=== PATIENT | male | born 1955 | race Caucasian/White ===

== ENCOUNTER 2020-10-16 01:48 | Outpatient (CLI) | payer MEDICARE, SELFPAY ==
[2020-10-16 19:16] LABS: SARS-CoV-2 RNA PCR Negative
== END 2020-10-16 01:49 | disposition home or self-care (01) ==
LOC: ANHCOVIDDT 01:50
PROVIDERS: PCP Family Medicine; Visit Provider Internal Medicine Gastroenterology
DX: Z01.818 Encounter for other preprocedural examination (principal); Z20.828 Contact with and (suspected) exposure to other viral communicable diseases
CPT/HCPCS: 87635; C9803; U0003

== ENCOUNTER 2020-10-18 01:30 | Day surgery (SDC) | payer MEDICARE, SELFPAY ==
[2020-10-08 13:54] VITALS: BMI 25.1
[2020-10-18 06:24] VITALS: BP 122/72; PULSE 60; RESP 18; TEMP 36.3; O2SAT 100
[2020-10-18] MEDS: LACTATED RINGERS 1,000 ML 150 ML IV CONT (06:32)
--- NOTE | 2020-10-18 07:24 | WPDANESEPPF ---
Anes - Initial Pre Proc Eval Procedure: Operation Date: 10/18/20 07:30 Proposed Procedures p Screening Colonoscopy - Irvin Alvarez DO Date/Time: 10/18/20 07:24 Surgeon: Irvin Alvarez DO Pre Op Diagnosis: Neoplasm Screening Patient Data Age: 65 Gender: M Height: 5 ft 8 in Weight: 75.2 kg Last Vital Signs Temp 97.4 F L 10/18/20 06:24 Pulse 60 10/18/20 06:24 Resp 18 10/18/20 06:24 BP 122/72 10/18/20 06:24 Pulse Ox 100 10/18/20 06:24 Allergies Allergy/AdvReac Type Severity Reaction Status Date / Time No Known Allergies Allergy Verified 10/18/20 06:21 Home Medications Medication Instructions Recorded Confirmed Type chlorthalidone 25 mg tablet 25 mg PO DAILY 08/24/20 10/08/20 History rosuvastatin 40 mg tablet 40 mg PO DAILY 08/24/20 10/08/20 History carvedilol 12.5 mg PO BID 10/18/20 10/18/20 History Patient hx anesthesia problems: none Family hx anesthesia problems: none PMFSH Past Medical History Medical History (Updated 09/26/20 @ 20:52 by Olga Lidia Minaya NP) Coronary arteriosclerosis in [place] artery Elevated glucose Essential (primary) hypertension Mixed hyperlipidemia Screen for colon cancer Screening for prostate cancer Family History Family History Father Hypertension Other Family history of coronary artery disease Social History Social History Smoking status: Never smoker Tobacco type: cigarettes Alcohol intake: current Drinks per week: 4 Substance use: unknown Substance use type: unknown Spiritual care concerns: No Anes - Eval Final PreProcedure Day of Procedure 10/18/20 07:24 Patient weight: normal Heart: regular rate and rhythm Lungs: clear to auscultation Airway: Mallampati scale Last oral intake: >/= 8 hours ASA classification: III Emergent: no Anesthetic plan: proceed Anesthesia type and monitoring: general GIVS and standard monitoring Informed Consent: The patient's anesthetic plan and its attendant risks and benefits were discussed with the patient/family/POA. Questions were solicited and answers provided to the satisfaction of the patient/family/POA.
--- NOTE | 2020-10-18 08:01 | P.HP_ITS ---
H&P: HPI History of Present Illness Date/Time: 10/18/20 08:01 Chief complaint: Neoplasm Screening Narrative: Reason for visit is colonoscopy. This very pleasant gentleman seen at the request of the primary physician. Impression: Screening colonoscopy. CAD status post stent placement x3. Hyperlipidemia. Hypertension. Recommendation: Colonoscopy. History: This very pleasant gentleman is here for screening colonoscopy. GI review systems essentially unremarkable. Previous colonoscopy was about 10 years ago. He had a questionable history of polyps. However, I see no evidence of polyps in the old records. Physical examination: General: very pleasant patient in no acute distress. HEENT: Head was normocephalic sclerae is clear mouth without masses neck was supple. Heart: Rate rhythm regular without S3 or S4. Lungs: CTA. Abdomen: Soft with no guarding or rigidity. Bowel sounds were active. Neurologic: Cranial nerves 2 through 12 intact. No focal defects. No clonus. Musculoskeletal system: Revealed no joint tenderness or swelling no muscle atrophy. Extremities: Reveal no significant edema. Skin: Warm and dry with normal turgor. Mental status: intact. Patient is alert and oriented. Review of Systems Review of Systems: All systems reviewed & are unremarkable except as noted in HPI and below PMFSH Past Medical History Medical History (Updated 09/26/20 @ 20:52 by Olga Lidia Minaya NP) Coronary arteriosclerosis in [place] artery Elevated glucose Essential (primary) hypertension Mixed hyperlipidemia Screen for colon cancer Screening for prostate cancer Surgical History Surgical History (Updated 10/18/20 @ 08:03 by Irvin Alvarez DO) H/O colonoscopy History of coronary angioplasty with insertion of stent Family History Family History Father Hypertension Other Family history of coronary artery disease Social History Social History Smoking status: Never smoker Tobacco type: cigarettes Alcohol intake: current Drinks per week: 4 Substance use: unknown Substance use type: unknown Spiritual care concerns: No Meds Home Medications and Allergies Home Medications Medication Instructions Recorded Confirmed Type chlorthalidone 25 mg tablet 25 mg PO DAILY 08/24/20 10/08/20 History rosuvastatin 40 mg tablet 40 mg PO DAILY 08/24/20 10/08/20 History carvedilol 12.5 mg PO BID 10/18/20 10/18/20 History Allergies Allergy/AdvReac Type Severity Reaction Status Date / Time No Known Allergies Allergy Verified 10/18/20 06:21 Vital Signs Vital Signs - 24 hr 10/18/20 06:24 Temperature 36.3 C L Pulse Rate 60 Respiratory Rate 18 Blood Pressure 122/72 Pulse Oximetry 100
[2020-10-18 08:33] VITALS: BP 85/42; PULSE 58; RESP 16; O2SAT 96
[2020-10-18 08:43] VITALS: BP 91/55; PULSE 55; RESP 19; O2SAT 100
[2020-10-18 08:53] VITALS: BP 102/70; PULSE 52; RESP 15; O2SAT 100
== END 2020-10-18 09:08 | disposition home or self-care (01) ==
PROVIDERS: PCP Family Medicine; Visit Provider Internal Medicine Gastroenterology
PROC: 0DJD8ZZ Inspection of Lower Intestinal Tract, Via Natural or Artificial Opening Endoscopic (ICD-10-PCS; CPT 45378; principal; 2020-10-18 07:30)
DX: Z12.11 Encounter for screening for malignant neoplasm of colon (principal); D12.3 Benign neoplasm of transverse colon; K63.5 Polyp of colon; K64.8 Other hemorrhoids; I25.10 Atherosclerotic heart disease of native coronary artery without angina pectoris; I10 Essential (primary) hypertension; E78.2 Mixed hyperlipidemia
CPT/HCPCS: 45380; 88305; C9803; J2704; J7120; U0003

== ENCOUNTER 2025-07-20 01:56 | Day surgery (SDC) | payer MEDICARE, SELFPAY ==
[2025-06-06 11:37] VITALS: BMI 25.6
--- OUTSIDE RECORDS SUMMARY | 2025-06-21 01:56 | XMS_ITS | Referral Summary ---
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 Overview (02/20/2017): MIXED HYPERLIPIDEMIA Family history of cardiovascular disease 014 Overview (02/20/2017): FAM HX-CARDIOVAS DIS NEC Social History Tobacco Use Types Packs/Day Years Used Date Smoking Tobacco: Never Assessed Sex and Gender Information Value Date Recorded Sex Assigned at Not on file 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
--- OUTSIDE RECORDS SUMMARY | 2025-06-21 01:57 | XMS_ITS | Clinical Summary ---
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 Gender Identity Not on file Sexual Orientation Not on file Plan of Treatment Health Maintenance Due Date Last Done Comments Colon Cancer Screening-Colonoscopy 1954 Depression Screening 1954 Fall Risk Assessment 1955 Hepatitis C Screening 1955 Abdominal Aortic Aneurysm (A AA) Screen 2019 Well Visit 65+ 2019 Covid-19 Vaccine (2023-2 5 season) 2025 07/29/2024, 08/22/2023, 08/15/2022, Additional history exists Influenza Vaccine (#1) 2025 , 08/22/2023, 07/25/2023, Additional history exists DTaP/Tdap/Td Vaccine (3 - Td or Tdap) 03/23/2034 03/23/2024, 12/01/2013 Hepatitis B Screening Completed 05/16/2015 , 05/17/2014, 12/01/2013 Zoster Vaccine Completed 09/02/2021, 02/14, 12/18/2014 Pneumococcal vaccine 65+ Completed 023, 03/01/2021, 08/08/2019, Additional history exists Insurance [facility] MEDICARE ADVANTAGE Care Teams Edge Cutter Relationship Specialty Start Date End Date Terence Barber MD PCP - General 10/14/10
--- OUTSIDE RECORDS SUMMARY | 2025-06-21 01:57 | XMS_ITS | Clinical Summary ---
Author Organization [facility] Address [address] [id number] Phone Care Team Providers Care Cloth Stretcher Name Role Phone Terence Barber MD Primary Care Provider [phone] Social History Tobacco Use Types Packs/Day Years Used Date Smoking Tobacco: Never Assessed Sex and Gender Information Value Date Recorded Sex Assigned at Not on file Legal Sex Male 3:35 AM CDT Gender Identity Not on file Sexual Orientation Not on file Plan of Treatment Health Maintenance Due Date Last Done Comments Hepatitis C Virus (HCV) Screening 1955 TdaP Immunization 1954 Cologuard 1999 Immunochemical Fecal Occult Blood 1999 Pneumococcal Immunization (5 0+ years) (1 of 1 - PCV) 2004 Zoster Immunization (1 of 2) 2004 Colonoscopy 01/16/2021 10/18/2020 Colorectal Cancer Screening 01/16/2021 SARS-COV-2 Immunization ( - season) 2024 Influenza Immunization (#1) 2025 Respiratory Syncytial Virus (RSV) Immunization (Adult) (1 - 1-dose 75+ series) 2029 Hepatitis B Immunization Aged Out No longer eligible based on patient's age to complete this topic Human Papillomavirus (HPV) Immunization Aged Out No longer eligible b ased on patient's age to complete this topic Meningococcal Immunization (ACWY) Aged Out No longer eligible based on patient's age to complete this topic Rotavirus Immunization Aged Out No lo nger eligible based on patient's age to complete this topic Procedures Procedure Name Priority Date/Time Associated Diagnosis Comments HM COLONOSCOPY Routine 10/18/2020 from Last 3 Months or Most Recently Relevant to Health Maintenance Results * COLONOSCOPY (10/18/2020) Irvin Alvarez DO PROCEDURE/MINOR SURGICAL ORDERA BLES Final Result from Last 3 Months or Most Recently Relevant to Health Maintenance Insurance MEDICARE C [employer] on file Care Teams Cloth Stretcher Relationship Specialty Start Date End Date Terence Barber MD [address] [address] PCP - General Family Medicine 10/23/20
--- OUTSIDE RECORDS SUMMARY | 2025-06-21 01:57 | XMS_ITS | Continuity of Care Document ---
Author Name [facility] Organization [facility] Care Team Providers Care Histological Illustrator Name Role Phone [facility] Unavailable Unavailable Problems Combined list of problems from Department of Defense and [facility] Affairs facilities. It does not include entries that were removed or entered in error. Problem Status Onset Date Problem Type Date of Resolution Comments Source Alcohol intake above recommended sensible limits Active Condition [facility] Benign essential hypertension Active Condition [facility] Family history of alcoholism Active Condition [facility] Family history of malignant neoplasm of digestive organ Active Condition [facility] Hyperlipidemia Active Condition [facility] Nondependent alcohol abuse, episodic Active Condition [facility] Post percutaneous transluminal coronary angioplasty Active Condition [facility] Prediabetes Active Condition [facility] Stented coronary artery Active Condition [facility] Tinea pedis Active Condition [facility] Coronary arteriosclerosis (SNOMED CT 76262993) Inactive Condition 07/24/2017 [facility] Essential hypertension (SNOMED CT 48601096) Inactive Condition 07/24/2017 [facility] Hyperlipidemia (SNOMED CT 40893110) Inactive Condition 07/24/2017 [facility] Diagnosis: ICD-10-CM Z95.5 Presence of coronary angioplasty implant and graft Active Diagnosis [facility] Diagnosis: ICD-10-CM S02.401A Maxillary fracture, unspecified side, init Active Diagnosis [facility] Diagnosis: ICD-10-CM W01.198S Fall same lev from slip/trip w strike agnst oth object, sqla Active Diagnosis [facility] Diagnosis: ICD-10-CM R73.[address] [facility] Diagnosis: ICD-10-CM R60.0 Localized edema Active Diagnosis [facility] Diagnosis: ICD-10-CM Z13.5 Encounter for screening for eye and ear disorders Active Diagnosis [facility] Diagnosis: ICD-10-CM E87.6 Hypokalemia Active Diagnosis [facility] Diagnosis: ICD-10-CM I25.10 Athscl heart disease of [place] coronary artery w/o ang pctrs Active Diagnosis [facility] Medications Combined list of outpatient medications from Department of Defense and Veterans Affairs facilities.Medications provided include 1) outpatient medications from the last 15 months, and 2) patient-reported medications. Medication Details Route Status Patient Instructions Prescription Expires Prescription Number Last Dispense Date Ordering Provider Order Date Order Qty Source AMOXICILLIN TRIHYDRATE 875MG/CLAVU LANATE K 125MG TAB TAKE 1 TABLET BY MOUTH TWICE A DAY FOR SINUS INFECTIO N TAKE WITH FOOD. TAKE UNTIL GONE UNLESS OTHERWIS E DIRECTED START 12/06 TAKE WITH FOOD. TAKE UNTIL GONE UNLESS OTHERWIS E DIRECTED START 12/06 ORAL 01/04/2025 [id number] VIRAL CALLOWAY 2024 9 [facility] ASPIRIN 81MG TAB,EC TAKE ONE TABLET BY MOUTH ONCE A DAY ORAL ACTIVE Ana M TRINH 2013 [facility] CARVEDILOL 25MG TAB TAKE ONE-HALF TABLET BY MOUTH TWICE A DAY FOR HEART. TAKE WITH FOOD. ORAL ACTIVE 03/18/2026 [id number] 5 ARIANA GUADALUPE 2024 90 [facility] CARVEDILOL 25MG TAB TAKE ONE-HALF TABLET BY MOUTH TWICE A DAY FOR HEART. TAKE WITH FOOD. ORAL DISCONT INUED 03/24/2025 [id number] 5 ARIANA GUADALUPE 2023 90 [facility] CHLORTHALID ONE 50MG TAB TAKE ONE TABLET BY MOUTH ONCE A DAY FOR HIGH BLOOD PRESSURE ORAL DISCONT INUED BY PROVIDE R 03/24/2025 [id number] FAUSTINA ARIANA 2023 90 [facility] ERYTHROMYCI N 0.5% OINT,OPH APPLY 1 INCH RIBBON TO RIGHT EYE EVERY 6 HOURS ONTO THE CUT OPHTHA LMIC ACTIVE 12/17/2025 [id number] 5 VALORIE GARCIA 2024 5 [facility] HYDROCODONE 5MG/ACETAMI NOPHEN 325MG TAB TAKE 1 TABLET BY MOUTH EVERY 6 HOURS NEEDED FOR PAIN CAUTION: DO NOT EXCEED 4000MG PER DAY ACETAMIN OPHEN (APAP) FROM ALL MEDS. ORAL 01/04/2025 [id number] 5 VIRAL CALLOWAY 2024 18 [facility] IBUPROFEN 600MG TAB TAKE ONE TABLET BY MOUTH THREE TIMES A DAY NEEDED FOR PAIN TAKE WITH FOOD. ORAL 01/04/2025 [id number] 5 VIRAL CALLOWAY 2024 30 [facility] LOSARTAN 50MG TAB TAKE ONE TABLET BY MOUTH ONCE A DAY ORAL ACTIVE 03/11/2026 [id number] 5 FABIANOAIDMassiel, 2024 90 [facility] LOSARTAN 50MG TAB TAKE ONE TABLET BY MOUTH ONCE A DAY ORAL DISCONT INUED 03/19/2025 [id number] 5 FAUSTINA 2024 90 [facility] LOSARTAN 50MG TAB TAKE ONE TABLET BY MOUTH ONCE A DAY ORAL DISCONT INUED 03/07/2025 [id number] 5 FAUSTINA, 2024 90 [facility] LOSARTAN 50MG TAB TAKE ONE TABLET BY MOUTH ONCE A DAY FOR HIGH BLOOD PRESSURE ORAL 10/30/2024 [id number] 4 FAUSTINA ARIANA2023 90 [facility] LOSARTAN 50MG TAB TAKE ONE TABLET BY MOUTH ONCE A DAY ORAL 06/28/2024 [id number] 4 FAUSTINA 2023 90 [facility] [place] POTASSIUM 100MG TAB TAKE ONE-HALF TABLET BY MOUTH ONCE A DAY ORAL DISCONT INUED 03/31/2025 [id number] FAUSTINA 2023 45 [facility] MELATONIN 5MG CAP/TAB TAKE 1 CAP/TAB BY MOUTH AT BEDTIME ORAL ACTIVE Ana M TRINH AREN 2013 [facility] MULTIVITAMI NS CAP/TAB TAKE ONE TABLET BY MOUTH ONCE A DAY ORAL ACTIVE Ana M TRINH AREN 2015 [facility] NALOXONE HCL 4MG/SPRAY SOLN,SPRAY, NASAL USE 1 SPRAY (4MG) INTO ONE NOSTRIL ONLY ONE-TIME FOR OPIOID OVERDOSE DO NOT PRIME NASAL SPRAY. SPRAY ONE DOSE IN ONE NOSTRIL, GIVE ADDITION AL DOSE IF PATIENT DOES NOT START BREATHIN G WITHIN 2-3 MINUTES OR STOPS BREATHIN G AGAIN. CALL 911. IF USED, NOTIFY PROVIDER . NASAL 01/04/2025 [id number] VIRAL CALLOWAY 2024 2 [facility] POTASSIUM CHLORIDE 20MEQ TAB,SA (DISPERSIBL E) TAKE TWO TABLETS BY MOUTH ONCE A DAY TAKE WITH FOOD ORAL DISCONT INUED BY PROVIDE R 03/24/2025 [id number] 4 FAUSTINA, 2023 180 [facility] ROSUVASTATI N CA 40MG TAB TAKE ONE TABLET BY MOUTH EVERY EVENING TO LOWER CHOLESTE ROL (REPORT ANY MUSCLE PAIN OR WEAKNESS ) ORAL ACTIVE 03/18/2026 [id number] 5 JUANAIDMassiel, 2024 90 [facility] ROSUVASTATI N CA 40MG TAB TAKE ONE TABLET BY MOUTH EVERY EVENING TO LOWER CHOLESTE ROL (REPORT ANY MUSCLE PAIN OR WEAKNESS ) ORAL DISCONT INUED 03/24/2025 [id number] 5 ARIANA GUADALUPE 2023 90 [facility] SODIUM CHLORIDE 0.65% SOLN,NASAL SPRAY USE 1 SPRAY INTO NOSTRIL( S) EVERY 4 HOURS NEEDED FOR NASAL CONGESTI ON NASAL ACTIVE 12/06/2025 [id number] 5 VIRAL CALLOWAY 2024 45 [facility] Allergies, Adverse Reactions, Alerts Combined list of allergies from Department of Defense and Veterans Affairs facilities. It does not include entries that were removed or entered in error. Substance Category Reaction Severity Reaction type Status Date Reported Comments Source ATORVASTATIN Propensity to adverse reactions to drug (finding) Chest pain active 9 [facility] Immunizations Combined list of available immunizations from the Department of Defense and Veterans Affairs facilities. Immunization Series Date Given Administered By Site Reaction Lot Number CVX Code Drug Associate Publisher Status Comments Source TDAP 2023 OVERTURFGURJIT LEFT DELTO ID [id number] 115 complet ed [facility] [place], [facility] COVID-19 (PFIZER), MRNA, LNP-S, PF, LESLI-SUCROSE, 30 MCG/0.3 ML (AGES 12+ YEARS) 1 2022 309 complet ed HISTORICA L INFORMATI ON - FROM PATIENT'S WRITTEN RECORD, [facility] COVID-19 (Enubila), MRNA, LNP-S, PF, LESLI-SUCROSE, 30 MCG/0.3 ML (AGES 12+ YEARS) 1 2022 309 complet ed HISTORICA L INFORMATI ON - FROM PATIENT'S RECALL, [facility] INFLUENZA, UNSPECIFIED FORMULATION 2022 88 complet ed HISTORICA L INFORMATI ON - FROM PATIENT'S RECALL, [facility] RECOMBINANT 2 2020 187 complet ed [facility] COVID-19 (Enubila), MRNA, LNP-S, PF, 30 MCG/0.3 ML DOSE 3 2020 208 complet ed [facility] INFLUENZA, UNSPECIFIED FORMULATION 2020 88 complet ed [facility] PNEUMOCOCCAL POLYSACCHARID E PPV23 2020 33 complet ed [facility] ZOSTER RECOMBINANT 1 2020 187 complet ed [facility] COVID-19 (PFIZER), MRNA, LNP-S, PF, 30 MCG/0.3 ML DOSE 2 2020 208 complet ed PFR; [id number]; [address] [facility] COVID-19 (PFIZER), MRNA, LNP-S, PF, 30 MCG/0.3 ML DOSE 1 2020 208 complet ed PFR; [id number]; 1 [facility] [facility] INFLUENZA, UNSPECIFIED FORMULATION 2019 88 complet ed [facility] INFLUENZA, INJECTABLE, QUADRIVALENT, PRESERVATIVE FREE 2018 150 complet ed [facility] PNEUMOCOCCAL CONJUGATE PCV 13 2018 133 complet ed [facility] INFLUENZA, INJECTABLE, QUADRIVALENT, PRESERVATIVE FREE 2017 150 complet ed [facility] INFLUENZA, INJECTABLE, QUADRIVALENT, PRESERVATIVE FREE 2016 150 complet ed [facility] INFLUENZA, SEASONAL, INJECTABLE, PRESERVATIVE FREE 2015 140 complet ed [facility] INFLUENZA, SEASONAL, INJECTABLE, PRESERVATIVE FREE 2015 140 complet ed [facility] HEP A-HEP B 2014 104 complet ed [facility] ZOSTER LIVE 2014 121 complet ed [facility] PNEUMOCOCCAL POLYSACCHARID E PPV23 2014 33 complet ed [facility] INFLUENZA, UNSPECIFIED FORMULATION 2013 88 complet ed [facility] HEP A-HEP B 2013 104 complet ed [facility] HEP A-HEP B 2013 104 complet ed [facility] TDAP 2013 115 complet ed Left Deltoid [facility] INFLUENZA, UNSPECIFIED FORMULATION 2012 88 complet ed [facility] Results Combined list of recent chemistry, hematology and other laboratory results from Department of Defense and Veterans Affairs, ranging from 15 months to all on record, depending upon the facility. Order Name Results Value Reference Range Date Interpretation Specimen Comments Source URINALYSI S (STL-PB) COLOR OF URINE Colorles s 12/19 Specimen Type: URINE No comment entered. Ordering Provider: Fadumo GUADALUPE Report Released Date/Time: Dec 19, 2024 08:13 AM Reporting Lab: [facility] [place] [address] Performing Lab: [facility] [facility] URINALYSI S (STL-PB) BILIRUBIN. TOTAL [PRESENCE] IN URINE BY TEST STRIP Negative mg/dL 12/19 Specimen Type: URINE No comment entered. Ordering Provider: Fadumo GUADALUPE Report Released Date/Time: Dec 19, 2024 08:13 AM Reporting Lab: [facility] [place] [address] Performing Lab: [facility] [facility] URINALYSI S (STL-PB) PH OF URINE BY TEST STRIP 6.5 5.0 - 8.0 12/19 Specimen Type: URINE No comment entered. Ordering Provider: Fadumo GUADALUPE Report Released Date/Time: Dec 19, 2024 08:13 AM Reporting Lab: [facility] [place] [address] Performing Lab: [facility] [facility] URINALYSI S (STL-PB) APPEARANCE OF URINE Clear 12/19 Specimen Type: URINE No comment entered. Ordering Provider: Fadumo GUADALUPE Report Released Date/Time: Dec 19, 2024 08:13 AM Reporting Lab: [facility] [place] [address] Performing Lab: [facility] [facility] URINALYSI S (STL-PB) NITRITE [PRESENCE] IN URINE BY TEST STRIP Negative mg/dL 12/19 Specimen Type: URINE No comment entered. Ordering Provider: Fadumo GUADALUPE Report Released Date/Time: Dec 19, 2024 08:13 AM Reporting Lab: [facility] [place] [address] Performing Lab: [facility] [facility] URINALYSI S (STL-PB) GLUCOSE [MASS/VOLU ME] IN URINE BY TEST STRIP Normalmg /dL 12/19 Specimen Type: URINE No comment entered. Ordering Provider: Fadumo GUADALUPE Report Released Date/Time: Dec 19, 2024 08:13 AM Reporting Lab: [facility] [place] [address] Performing Lab: [facility] [facility] URINALYSI S (STL-PB) PROTEIN [MASS/VOLU ME] IN URINE BY TEST STRIP Negative mg/dL 12/19 Specimen Type: URINE No comment entered. Ordering Provider: Fadumo GUADALUPE Report Released Date/Time: Dec 19, 2024 08:13 AM Reporting Lab: [facility] [place] [address] Performing Lab: [facility] [facility] URINALYSI S (STL-PB) URN.UROBIL INOGEN Normalmg /dL 12/19 Specimen Type: URINE No comment entered. Ordering Provider: Fadumo GUADALUPE Report Released Date/Time: Dec 19, 2024 08:13 AM Reporting Lab: [facility] [place] [address] Performing Lab: [facility] [facility] URINALYSI S (STL-PB) HEMOGLOBIN [MASS/VOLU ME] IN URINE BY TEST STRIP Negative mg/dL 12/19 Specimen Type: URINE No comment entered. Ordering Provider: Fadumo GUADALUPE Report Released Date/Time: Dec 19, 2024 08:13 AM Reporting Lab: [facility] [place] [address] Performing Lab: [facility] [facility] URINALYSI S (STL-PB) KETONES [MASS/VOLU ME] IN URINE BY TEST STRIP Negative mg/dL 12/19 Specimen Type: URINE No comment entered. Ordering Provider: Fadumo GUADALUPE Report Released Date/Time: Dec 19, 2024 08:13 AM Reporting Lab: [facility] [place] [address] Performing Lab: [facility] [facility] URINALYSI S (STL-PB) URN.LEUK.E ST. Negative mg/dL 12/19 Specimen Type: URINE No comment entered. Ordering Provider: Fadumo GUADALUPE Report Released Date/Time: Dec 19, 2024 08:13 AM Reporting Lab: [facility] [place] [address] Performing Lab: [facility] [facility] URINALYSI S (STL-PB) SPECIFIC GRAVITY OF URINE 1.006 12/19 Specimen Type: URINE No comment entered. Ordering Provider: Fadumo GUADALUPE Report Released Date/Time: Dec 19, 2024 08:13 AM Reporting Lab: [facility] [place] [address] Performing Lab: [facility] [facility] TSH (MA-PB) THYROTROPI N [UNITS/VOL UME] IN SERUM OR PLASMA 0.958 u[IU]/mL 0.470 - 5.000 12/19 Specimen Type: SERUM No comment entered. Ordering Provider: Fadumo GUADALUPE Report Released Date/Time: Dec 19, 2024 08:13 AM Reporting Lab: [facility] [place] [address] Performing Lab: [facility] DIV[facility] HGA1C HEMOGLOBIN A1C/HEMOGL OBIN.TOTAL IN BLOOD 5.9 4.0 - 6.0 12/19 Specimen Type: BLOOD No comment entered. Ordering Provider: Fadumo GUADALUEP Report Released Date/Time: Dec 19, 2024 08:13 AM Reporting Lab: [facility] [place] [address] Performing Lab: [facility] [facility] LIPID PANEL (STL) CHOLESTERO L [MASS/VOLU ME] IN SERUM OR PLASMA 147 mg/dL 0 - 200 12/19 Specimen Type: PLASMA Comment: No hemolysis noted. Ordering Provider: Fadumo GUADALUPE Report Released Date/Time: Dec 19, 2024 08:13 AM Reporting Lab: [facility] [place] [address] Performing Lab: [facility] LIPID PANEL (STL) TRIGLYCERI DE [MASS/VOLU ME] IN SERUM OR PLASMA 123 mg/dL 0 - 150 12/19 Specimen Type: PLASMA Comment: No hemolysis noted. Ordering Provider: Fadumo GUADALUPE Report Released Date/Time: Dec 19, 2024 08:13 AM Reporting Lab: [facility] [place] [address] Performing Lab: [facility] LIPID PANEL (STL) CHOLESTERO L IN LDL [MASS/VOLU ME] IN SERUM OR PLASMA BY CALCRALPH N 79 mg/dL 12/19 Specimen Type: PLASMA Comment: No hemolysis noted. Ordering Provider: Fadumo GUADALUPE Report Released Date/Time: Dec 19, 2024 08:13 AM Reporting Lab: [facility] [place] [address] Performing Lab: [facility] LIPID PANEL (STL) CHOLESTERO L IN HDL [MASS/VOLU ME] IN SERUM OR PLASMA 43 mg/dL 40 12/19 Specimen Type: PLASMA Comment: No hemolysis noted. Ordering Provider: Fadumo GUADALUPE Report Released Date/Time: Dec 19, 2024 08:13 AM Reporting Lab: [facility] [place] [address] Performing Lab: [facility] DIV[facility] VITAMIN D, 25-HYDROX Y 25-HYDROXY VITAMIN D3 [MASS/VOLU ME] IN SERUM OR PLASMA 38.0 ng/mL 30 - 96 12/19 Specimen Type: SERUM No comment entered. Ordering Provider: Fadumo GUADALUPE Report Released Date/Time: Dec 19, 2024 08:13 AM Reporting Lab: [facility] [place] [address] Performing Lab: [facility] [facility] COMPREHEN SIVE METABOLIC PANEL CREATININE [MASS/VOLU ME] IN SERUM OR PLASMA 0.92 mg/dL 0.70 - 1.30 12/19 Specimen Type: PLASMA Comment: No hemolysis noted. Ordering Provider: Fadumo GUADALUPE Report Released Date/Time: Dec 19, 2024 08:13 AM Reporting Lab: [facility] [place] [address] Performing Lab: [facility] [facility] COMPREHEN SIVE METABOLIC PANEL UREA NITROGEN [MASS/VOLU ME] IN SERUM OR PLASMA 13.9 mg/dL 9.0 - 25.0 12/19 Specimen Type: PLASMA Comment: No hemolysis noted. Ordering Provider: Fadumo GUADALUPE Report Released Date/Time: Dec 19, 2024 08:13 AM Reporting Lab: [facility] [place] [address] Performing Lab: [facility] [facility] COMPREHEN SIVE METABOLIC PANEL GLUCOSE [MASS/VOLU ME] IN SERUM OR PLASMA 85 mg/dL 72 - 99 12/19 Specimen Type: PLASMA Comment: No hemolysis noted. Ordering Provider: Fadumo GUADALUPE Report Released Date/Time: Dec 19, 2024 08:13 AM Reporting Lab: [facility] [place] [address] Performing Lab: [facility] [facility] COMPREHEN SIVE METABOLIC PANEL SODIUM [MOLES/VOL UME] IN SERUM OR PLASMA 137 meq/L 136 - 145 12/19 Specimen Type: PLASMA Comment: No hemolysis noted. Ordering Provider: Fadumo GUADALUPE Report Released Date/Time: Dec 19, 2024 08:13 AM Reporting Lab: [facility] [place] [address] Performing Lab: [facility] [facility] COMPREHEN SIVE METABOLIC PANEL POTASSIUM [MOLES/VOL UME] IN SERUM OR PLASMA 4.2 meq/L 3.5 - 5.0 12/19 Specimen Type: PLASMA Comment: No hemolysis noted. Ordering Provider: Fadumo GUADALUPE Report Released Date/Time: Dec 19, 2024 08:13 AM Reporting Lab: [facility] [place] [address] Performing Lab: [facility] [facility] COMPREHEN SIVE METABOLIC PANEL CHLORIDE [MOLES/VOL UME] IN SERUM OR PLASMA 105 meq/L 98 - 107 12/19 Specimen Type: PLASMA Comment: No hemolysis noted. Ordering Provider: Fadumo GUADALUPE Report Released Date/Time: Dec 19, 2024 08:13 AM Reporting Lab: [facility] [place] [address] Performing Lab: [facility] [facility] COMPREHEN SIVE METABOLIC PANEL CARBON DIOXIDE, TOTAL [MOLES/VOL UME] IN SERUM OR PLASMA 27 meq/L 22 - 31 12/19 Specimen Type: PLASMA Comment: No hemolysis noted. Ordering Provider: Fadumo GUADALUPE Report Released Date/Time: Dec 19, 2024 08:13 AM Reporting Lab: [facility] [place] [address] Performing Lab: [facility] [facility] COMPREHEN SIVE METABOLIC PANEL CALCIUM [MASS/VOLU ME] IN SERUM OR PLASMA 9.5 mg/dL 8.4 - 10.4 12/19 Specimen Type: PLASMA Comment: No hemolysis noted. Ordering Provider: Fadumo GUADALUPE Report Released Date/Time: Dec 19, 2024 08:13 AM Reporting Lab: [facility] [place] [address] Performing Lab: [facility] [facility] COMPREHEN SIVE METABOLIC PANEL PROTEIN [MASS/VOLU ME] IN SERUM OR PLASMA 7.1 g/dL 6.0 - 8.6 12/19 Specimen Type: PLASMA Comment: No hemolysis noted. Ordering Provider: Fadumo GUADALUPE Report Released Date/Time: Dec 19, 2024 08:13 AM Reporting Lab: [facility] [place] [address] Performing Lab: [facility] [facility] COMPREHEN SIVE METABOLIC PANEL ALBUMIN [MASS/VOLU ME] IN SERUM OR PLASMA 4.3 g/dL 3.4 - 5.0 12/19 Specimen Type: PLASMA Comment: No hemolysis noted. Ordering Provider: Fadumo GUADALUPE Report Released Date/Time: Dec 19, 2024 08:13 AM Reporting Lab: [facility] [place] [address] Performing Lab: [facility] DIV[facility] COMPREHEN SIVE METABOLIC PANEL BILIRUBIN. TOTAL [MASS/VOLU ME] IN SERUM OR PLASMA 0.2 mg/dL 0.2 - 1.2 12/19 Specimen Type: PLASMA Comment: No hemolysis noted. Ordering Provider: Fadumo GUADALUPE Report Released Date/Time: Dec 19, 2024 08:13 AM Reporting Lab: [facility] [place] [address] Performing Lab: [facility] DIVISION COMPREHEN SIVE METABOLIC PANEL ALKALINE PHOSPHATAS E [ENZYMATIC ACTIVITY/V OLUME] IN SERUM OR PLASMA 70 U/L 40 - 150 12/19 Specimen Type: PLASMA Comment: No hemolysis noted. Ordering Provider: Fadmuo GUADALUPE Report Released Date/Time: Dec 19, 2024 08:13 AM Reporting Lab: [facility] [place] [address] Performing Lab: [facility] [facility]ISION COMPREHEN SIVE METABOLIC PANEL ASPARTATE AMINOTRANS FERASE [ENZYMATIC ACTIVITY/V OLUME] IN SERUM OR PLASMA 34 U/L 5 - 34 12/19 Specimen Type: PLASMA Comment: No hemolysis noted. Ordering Provider: Fadumo GUADALUPE Report Released Date/Time: Dec 19, 2024 08:13 AM Reporting Lab: [facility] [place] [address] Performing Lab: [facility] DIVISION COMPREHEN SIVE METABOLIC PANEL ALANINE AMINOTRANS FERASE [ENZYMATIC ACTIVITY/V OLUME] IN SERUM OR PLASMA 24 U/L 8 - 40 12/19 Specimen Type: PLASMA Comment: No hemolysis noted. Ordering Provider: Fadumo GUADALUPE Report Released Date/Time: Dec 19, 2024 08:13 AM Reporting Lab: [facility] [place] [address] Performing Lab: [facility] DIVISION COMPREHEN SIVE METABOLIC PANEL GLOMERULAR FILTRATION RATE/1.73 SQ M.PREDICTE D [VOLUME RATE/AREA] IN SERUM, PLASMA OR BLOOD BY CREATININE -BASED FORMULA (CKD-EPI 2020) 89.49 60 12/19 Specimen Type: PLASMA Comment: No hemolysis noted. Ordering Provider: Fadumo GUADALUPE Report Released Date/Time: Dec 19, 2024 08:13 AM Reporting Lab: [facility] [place] [address] Performing Lab: [facility] DIVISION CBC LEUKOCYTES [#/VOLUME] IN BLOOD BY AUTOMATED COUNT 6.0 10*3/uL 3.6 - 11.2 12/19 Specimen Type: BLOOD No comment entered. Ordering Provider: Fadumo GUADALUPE Report Released Date/Time: Dec 19, 2024 08:13 AM Reporting Lab: [facility] [place] [address] Performing Lab: [facility] DIVISION CBC ERYTHROCYT ES [#/VOLUME] IN BLOOD BY AUTOMATED COUNT 5.02 10*6/uL 4.10 - 5.70 12/19 Specimen Type: BLOOD No comment entered. Ordering Provider: Fadumo GUADALUPE Report Released Date/Time: Dec 19, 2024 08:13 AM Reporting Lab: [facility] [place] [address] Performing Lab: [facility] CBC HEMOGLOBIN [MASS/VOLU ME] IN BLOOD 14.5 g/dL 13.1 - 16.8 12/19 Specimen Type: BLOOD No comment entered. Ordering Provider: Fadumo GUADALUPE Report Released Date/Time: Dec 19, 2024 08:13 AM Reporting Lab: [facility] [place] [address] Performing Lab: [facility] CBC HEMATOCRIT [VOLUME FRACTION] OF BLOOD 42.3 38.2 - 48.4 12/19 Specimen Type: BLOOD No comment entered. Ordering Provider: Fadumo GUADALUPE Report Released Date/Time: Dec 19, 2024 08:13 AM Reporting Lab: [facility] [place] [address] Performing Lab: [facility] CBC MCV [ENTITIC VOLUME] BY AUTOMATED COUNT 84.3 fL 80.0 - 100.0 12/19 Specimen Type: BLOOD No comment entered. Ordering Provider: Fadumo GUADALUPE Report Released Date/Time: Dec 19, 2024 08:13 AM Reporting Lab: [facility] [place] [address] Performing Lab: [facility] DIVISION CBC MCH [ENTITIC MASS] BY AUTOMATED COUNT 28.9 pg 27.0 - 34.0 12/19 Specimen Type: BLOOD No comment entered. Ordering Provider: Fadumo GUADALUPE Report Released Date/Time: Dec 19, 2024 08:13 AM Reporting Lab: [facility] [place] [address] Performing Lab: [facility] [place] [id number] DIVISION CBC MCHC [MASS/VOLU ME] BY AUTOMATED COUNT 34.3 g/dL 33.0 - 36.0 12/19 Specimen Type: BLOOD No comment entered. Ordering Provider: Fadumo GUADALUPE Report Released Date/Time: Dec 19, 2024 08:13 AM Reporting Lab: [facility] [place] [address] Performing Lab: [facility] DIVISION CBC PLATELETS [#/VOLUME] IN BLOOD BY AUTOMATED COUNT 130 10*3/uL 150 - 400 12/19 L Specimen Type: BLOOD No comment entered. Ordering Provider: Fadumo GUADALUPE Report Released Date/Time: Dec 19, 2024 08:13 AM Reporting Lab: [facility] [place] [address] Performing Lab: [facility] DIVISION CBC PLATELET MEAN VOLUME [ENTITIC VOLUME] IN BLOOD BY AUTOMATED COUNT 10.6 fL 7.5 - 11.2 12/19 Specimen Type: BLOOD No comment entered. Ordering Provider: Fadumo GUADALUPE Report Released Date/Time: Dec 19, 2024 08:13 AM Reporting Lab: [facility] [place] [address] Performing Lab: [facility] DIVISION CBC ERYTHROCYT E DISTRIBUTI ON WIDTH [RATIO] BY AUTOMATED COUNT 13.1 11.8 - 15.1 12/19 Specimen Type: BLOOD No comment entered. Ordering Provider: Fadumo GUADALUPE Report Released Date/Time: Dec 19, 2024 08:13 AM Reporting Lab: [facility] [address] Performing Lab: [facility] [address] [facility] CBC LYMPHOCYTE S/100 LEUKOCYTES IN BLOOD BY AUTOMATED COUNT 24 12/19 Specimen Type: BLOOD No comment entered. Ordering Provider: Fadumo GUADALUPE Report Released Date/Time: Dec 19, 2024 08:13 AM Reporting Lab: [facility] [address] Performing Lab: [facility] [phone] DIVISION CBC MONOCYTES/ 100 LEUKOCYTES IN BLOOD BY AUTOMATED COUNT 11 12/19 Specimen Type: BLOOD No comment entered. Ordering Provider: Fadumo GUADALUPE Report Released Date/Time: Dec 19, 2024 08:13 AM Reporting Lab: [facility] [address] Performing Lab: [facility] [id number] DIVISION CBC NEUTROPHIL S/100 LEUKOCYTES IN BLOOD BY AUTOMATED COUNT 62 12/19 Specimen Type: BLOOD No comment entered. Ordering Provider: Fadumo GUADALUPE Report Released Date/Time: Dec 19, 2024 08:13 AM Reporting Lab: [facility] [address] Performing Lab: [facility]1 [facility] [phone] [place] [address] DIVISION CBC EOSINOPHIL S/100 LEUKOCYTES IN BLOOD BY AUTOMATED COUNT 2 12/19 Specimen Type: BLOOD No comment entered. Ordering Provider: Fadumo GUADALUPE Report Released Date/Time: Dec 19, 2024 08:13 AM Reporting Lab: [facility] [address] Performing Lab: [facility] DIVISION CBC BASOPHILS/ 100 LEUKOCYTES IN BLOOD BY AUTOMATED COUNT 1 12/19 Specimen Type: BLOOD No comment entered. Ordering Provider: Fadumo GUADALUPE Report Released Date/Time: Dec 19, 2024 08:13 AM Reporting Lab: [facility]1 [place] [address] Performing Lab: [facility] DIVISION CBC LYMPHOCYTE S [#/VOLUME] IN BLOOD BY AUTOMATED COUNT 1.43 10*3/uL 0.77 - 4.50 12/19 Specimen Type: BLOOD No comment entered. Ordering Provider: Fadumo GUADALUPE Report Released Date/Time: Dec 19, 2024 08:13 AM Reporting Lab: [facility]1 [place] [address] Performing Lab: [facility] DIVISION CBC MONOCYTES [#/VOLUME] IN BLOOD BY AUTOMATED COUNT 0.68 10*3/uL 0.19 - 0.80 12/19 Specimen Type: BLOOD No comment entered. Ordering Provider: Fadumo GUDAALUPE Report Released Date/Time: Dec 19, 2024 08:13 AM Reporting Lab: [facility]1 [place] [address] Performing Lab: [facility] DIVISION CBC NEUTROPHIL S [#/VOLUME] IN BLOOD BY AUTOMATED COUNT 3.69 10*3/uL 2.10 - 8.00 12/19 Specimen Type: BLOOD No comment entered. Ordering Provider: Fadumo GUADALUPE Report Released Date/Time: Dec 19, 2024 08:13 AM Reporting Lab: [facility] [place] [address] Performing Lab: [facility]1 [place] [phone] DIVISION CBC EOSINOPHIL S [#/VOLUME] IN BLOOD BY AUTOMATED COUNT 0.12 10*3/uL 0.00 - 0.60 12/19 Specimen Type: BLOOD No comment entered. Ordering Provider: Fadumo GUADALUPE Report Released Date/Time: Dec 19, 2024 08:13 AM Reporting Lab: [facility] [place] [address] Performing Lab: [facility] CBC BASOPHILS [#/VOLUME] IN BLOOD BY AUTOMATED COUNT 0.03 10*3/uL 0.00 - 0.20 12/19 Specimen Type: BLOOD No comment entered. Ordering Provider: Fadumo GUADALUPE Report Released Date/Time: Dec 19, 2024 08:13 AM Reporting Lab: [facility]1 [place] [address] Performing Lab: [facility] CBC PLATELETS RETICULATE D/100 PLATELETS IN BLOOD BY AUTOMATED COUNT 3.5 1.0 - 7.0 12/19 Specimen Type: BLOOD No comment entered. Ordering Provider: Fadumo GUADALUPE Report Released Date/Time: Dec 19, 2024 08:13 AM Reporting Lab: [facility] [place] [address] Performing Lab: [facility] DIVISION BASIC METABOLIC PANEL CREATININE [MASS/VOLU ME] IN SERUM OR PLASMA 0.92 mg/dL 0.70 - 1.30 04/14 Specimen Type: PLASMA Comment: No hemolysis noted. Ordering Provider: Fadumo GUADALUPE Report Released Date/Time: March 30, 2024 02:29 PM Reporting Lab: [facility]1 [place] [phone] Performing Lab: [facility] DIVISION BASIC METABOLIC PANEL UREA NITROGEN [MASS/VOLU ME] IN SERUM OR PLASMA 8.8 mg/dL 9.0 - 25.0 04/14 L Specimen Type: PLASMA Comment: No hemolysis noted. Ordering Provider: Fadumo GUADALUPE Report Released Date/Time: March 30, 2024 02:29 PM Reporting Lab: [facility]1 [place] [address] Performing Lab: [facility] BASIC METABOLIC PANEL GLUCOSE [MASS/VOLU ME] IN SERUM OR PLASMA 83 mg/dL 72 - 99 04/14 Specimen Type: PLASMA Comment: No hemolysis noted. Ordering Provider: Fadumo GUADALUPE Report Released Date/Time: March 30, 2024 02:29 PM Reporting Lab: [facility] [place] [address] Performing Lab: [facility] DIVISION BASIC METABOLIC PANEL SODIUM [MOLES/VOL UME] IN SERUM OR PLASMA 139 meq/L 136 - 145 04/14 Specimen Type: PLASMA Comment: No hemolysis noted. Ordering Provider: Fadumo GUADALUPE Report Released Date/Time: March 30, 2024 02:29 PM Reporting Lab: [facility] [place] [address] Performing Lab: [facility] DIVISION BASIC METABOLIC PANEL POTASSIUM [MOLES/VOL UME] IN SERUM OR PLASMA 4.2 meq/L 3.5 - 5.0 04/14 Specimen Type: PLASMA Comment: No hemolysis noted. Ordering Provider: Fadumo GUADALUPE Report Released Date/Time: March 30, 2024 02:29 PM Reporting Lab: [facility] [place] [address] Performing Lab: [facility] DIVISION BASIC METABOLIC PANEL CHLORIDE [MOLES/VOL UME] IN SERUM OR PLASMA 106 meq/L 98 - 107 04/14 Specimen Type: PLASMA Comment: No hemolysis noted. Ordering Provider: Fadumo GUADALUPE Report Released Date/Time: March 30, 2024 02:29 PM Reporting Lab: [facility]1 [place] [address] Performing Lab: [facility] DIVISION BASIC METABOLIC PANEL CARBON DIOXIDE, TOTAL [MOLES/VOL UME] IN SERUM OR PLASMA 26 meq/L 22 - 31 04/14 Specimen Type: PLASMA Comment: No hemolysis noted. Ordering Provider: Fadumo GUADALUPE Report Released Date/Time: March 30, 2024 02:29 PM Reporting Lab: [facility] [place] [address] Performing Lab: [facility] DIVISION BASIC METABOLIC PANEL CALCIUM [MASS/VOLU ME] IN SERUM OR PLASMA 8.7 mg/dL 8.4 - 10.4 04/14 Specimen Type: PLASMA Comment: No hemolysis noted. Ordering Provider: Fadumo GUADALUPE Report Released Date/Time: March 30, 2024 02:29 PM Reporting Lab: [facility] [place] [address] Performing Lab: [facility] DIVISION BASIC METABOLIC PANEL GLOMERULAR FILTRATION RATE/1.73 SQ M.PREDICTE D [VOLUME RATE/AREA] IN SERUM, PLASMA OR BLOOD BY CREATININE -BASED FORMULA (CKD-EPI 2020) 90.05 60 04/14 Specimen Type: PLASMA Comment: No hemolysis noted. Ordering Provider: Fadumo GUADALUPE Report Released Date/Time: March 30, 2024 02:29 PM Reporting Lab: [facility]1 [place] [address] Performing Lab: [facility] MAGNESIUM MAGNESIUM [MASS/VOLU ME] IN SERUM OR PLASMA 2.1 mg/dL 1.6 - 2.6 03/30 Specimen Type: PLASMA Comment: No hemolysis noted. K Called to : Ariana Guadalupe NP at: 1300 on: 03/30/24 by: CANDI HURST/Ivette COCHRAN READ BACK PERFORMED Ordering Provider: Fadumo GUADALUPE Report Released Date/Time: March 23, 2024 10:38 AM Reporting Lab: [facility] [place] [address] Performing Lab: [facility] DIVISION FOLATE (STL-MA) FOLATE [MASS/VOLU ME] IN SERUM OR PLASMA 12.8 ng/mL 7 - 20 03/30 Specimen Type: SERUM No comment entered. Ordering Provider: Fadumo GUADALUPE Report Released Date/Time: March 23, 2024 10:38 AM Reporting Lab: [facility] [place] [address] Performing Lab: [facility] Vital Signs Combined list of inpatient and outpatient Vital Signs from Department of Defense and Veterans Affairs, ranging from 12 months to all on record, depending upon the facility. Vital Sign Value Date Comments Source SYSTOLIC BLOOD PRESSURE 132 12/27/2024 11:03:02 [facility] DIASTOLIC BLOOD PRESSURE 74 12/27/2024 11:03:02 [facility] PULSE OXIMETRY 98 12/27/2024 11:03:[address] [facility] WEIGHT 171 12/27/2024 11:03:[address] [facility] BMI 26 kg/m2 12/27/2024 11:03:[address] [facility] [facility] PAIN 0 12/27/2024 11:03:02 [facility] Jennifer [facility] TEMPERATURE 97.5 12/27/2024 11:03:02 [facility] PULSE 54 12/27/2024 11:03:02 [facility] Jennifer [facility] RESPIRATION 16 12/27/2024 11:03:02 [facility] SYSTOLIC BLOOD PRESSURE 133 12/23/2024 10:59:39 [facility] DIASTOLIC BLOOD PRESSURE 85 12/23/2024 10:59:39 [facility] PULSE OXIMETRY 96 12/23/2024 10:59:39 S Jesus [facility] PAIN 0 12/23/2024 10:59:[address] [facility] TEMPERATURE 97.2 12/23/2024 10:59:39 [facility] PULSE 56 12/23/2024 10:59:[address] [facility] RESPIRATION 16 12/23/2024 10:59:39 [facility] SYSTOLIC BLOOD PRESSURE 128 12/19/2024 11:26:37 [facility] DIASTOLIC BLOOD PRESSURE 83 12/19/2024 11:26:37 [facility] PULSE OXIMETRY 98 12/19/2024 11:26:37 S Jesus [facility] WEIGHT 169.8 12/19/2024 11:26:37 [facility] BMI 26 kg/m2 12/19/2024 11:26:37 [facility] PAIN 0 12/19/2024 11:26:37 [facility] TEMPERATURE 98 12/19/2024 11:26:37 [facility] PULSE 54 12/19/2024 11:26:37 [facility] RESPIRATION 16 12/19/2024 11:26:37 [facility] SYSTOLIC BLOOD PRESSURE 173 12/05/2024 15:58:51 [facility] DIASTOLIC BLOOD PRESSURE 90 12/05/2024 15:58:51 [facility] PULSE OXIMETRY 98 12/05/2024 15:58:51 [facility] TEMPERATURE 97.7 12/05/2024 15:58:51 [facility] PULSE 61 12/05/2024 15:58:[address] [facility] DIV[facility] RESPIRATION 16 12/05/2024 15:58:51 [facility] Encounters Combined list of: 1) Encounters from Department of [facility] Affairs facilities going backup to the last 18 months, not all [place] inpatient encounters are included; 2) Encounters from the Department of Defense facilities going backup to 280 months. 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 JACK CHOPRAFU 12/29 [facility] N [facility] Outpatient Encounter [id number] ABBIE FREITAS 02/08 [facility] N [facility] Outpatient Encounter [id number] 02/08 [facility] Outpatient Encounter [id number] 02/08 [facility] Outpatient Encounter [id number] Catarino GABRIELMassiel A 03/14 [facility] Outpatient Encounter [id number] 03/21 [facility] EMERGENCY DEPT VISIT MOD MDM [id number] Diagnos is: ICD-10- CM E87.6 Hypokal emia JAYA CASTRO ERT N 03/21 [facility] Outpatient Encounter [id number] JAYA CASTRO ERT N 03/21 [facility] Outpatient Encounter [id number] 03/23 [facility] IMG RTA DETCJ/MNTR DS STAFF [id number] Diagnos is: ICD-10- CM Z13.5 Encount er for screeni ng for eye and ear disorde rs SID BENNETT 03/23 [facility] OFFICE O/P EST MOD 30 MIN [id number] Diagnos is: ICD-10- CM E87.6 Hypokal emia Fadumo GUADALUPE HERESA 03/23 [facility] IMG RTA DETC/MNTR DS PHY/QHP [id number] Diagnos is: ICD-10- CM Z13.5 Encount er for screeni ng for eye and ear disorde rs MAYI HOLM R 03/29 [facility] N [facility] Outpatient Encounter [id number] VEEFadumo Rankin IMELDA 03/30 [facility] N [facility] Outpatient Encounter [id number] 04/01 [facility] N [facility] Outpatient Encounter [id number] 06/01 [facility] N [facility] Outpatient Encounter [id number] 06/01 [facility] Outpatient Encounter [id number] 08/01 [facility] En[facility] [id number] 09[facility] Outpatient Encounter [id number] Elizabeth CALLOWAY M 12/05 [facility] EMERGENCY DEPT VISIT MOD MDM [id number] Diagnos is: ICD-10- CM R60.0 Localiz ed edema Elizabeth CALLOWAY M 12/05 [facility] Outpatient Encounter [id number] Elizabeth CALLOWAY M 12/05 [facility] Outpatient Encounter [id number] 12/07 [facility] OFFICE O/P EST MOD 30 MIN [id number] Diagnos is: ICD-10- CM R73.03 Prediab VALORIE Benoit 12/16 [facility] Outpatient Encounter [id number] 12/19 [facility] OFFICE O/P EST MOD 30 MIN [id number] Diagnos is: ICD-10- CM W01.198 S Fall same lev from slip/tr ip w strike agnst oth object, sqla JENNIFERFadumo ANGULO HERESA 12/19 [facility] OFFICE O/P EST MOD 30 MIN [id number] Diagnos is: ICD-10- CM S02.401 A Maxilla ry fractur e, unspeci fied side, init ANSLEY,HOANG SHI 12/23 [facility] OFFICE O/P EST MOD 30 MIN [id number] Diagnos is: ICD-10- CM Z95.5 Presenc e of coronar y angiopl asty implant and graft OU,JIAFU 12/27 [facility] Outpatient Encounter [id number] 03/10 [facility] Outpatient Encounter [id number] 03/10 [facility] Outpatient Encounter [id number] 03/17 [facility] Social History Combined list of available smoking, tobacco, and other social history from Department of Defense and Veterans Affairs facilities. Social History Type Response Date Comment Sourc e Tobacco smoking status NHIS [facility] FORMER USER 03/23/2024 [facility] History of tobacco use [place] QU[place] 1 5 YRS OR MORE 03/23/2024 [facility] History of tobacco use [place]-TO[place]AC[place] QUIT 1 5 YRS OR MORE 01/13/2023 [facility] History of tobacco use [place] FORMER USER 03/01/2021 [facility] History of tobacco use [place]-TOBACCO QUIT 5 TO < 15 YRS 08/02/2019 [facility] History of tobacco use QUIT TOBACCO >7 Y EARS AGO 01/29/2018 [facility] History of tobacco use QUIT TOBACCO >7 Y EARS AGO 07/24/2017 [facility] History of tobacco use QUIT TOBACCO >7 Y EARS AGO 03/14/2016 [facility] History of tobacco use QUIT TOBACCO >7 Y EARS AGO 10/26/2014 [facility] History of tobacco use LIFETIME NON-USER OF TOBACCO 09/14/2013 [facility] Plan of Care List of future care activities from Department of Veterans Affairs facilities. Additional future care activities may be listed in the Assessment and Plan section. Date/Time Care Activity Care Activity Detail Facili ty 08/04/2025 AMBULATORY - MEDICINE AMBULATORY - MEDICI NE [facility]
--- NOTE | 2025-06-21 09:05 | SUR.PREOP ---
Patient called to report no solid bowel movement with the 2 day prep. Only brown liquid stool. Dr. No made aware, orders to cancel the procedure for today and repeat 2 day prep with jeff. Pt. instructed to resume previous diet and continue any medications he usually takes and we would be in contact with him later with other options for his bowel prep. Pt. verbalized understanding.
--- NOTE | 2025-06-21 14:38 | SUR.PREOP ---
Pt called in this am 06/21 letting us know that he had not had any solid bowel movements since he starting taking his prep and didn't want to come in again only to be cancelled. We spoke with Dr. No and he said he wanted the patient to take some Linzess prior to taking his colon prep for his next colonoscopy. Patient did do a 2 day prep for his procedure today with no results. I called the patient to reschedule and him and told him the office would be in contact with him in regards to the prep and the doctor wanting him to take some medication in addition to the prep solution to get his bowels moving. Patient voiced understanding and would wait for the call from the office. 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 Instructions given to patient on where the doctors office is located. According to Dr. No he is going to give the patient instructions on how to take the Linzess in combination with a 2 day Golylte prep.
[2025-07-10 11:06] VITALS: BMI 25.6
--- OUTSIDE RECORDS SUMMARY | 2025-07-20 01:58 | XMS_ITS | Clinical Summary ---
Author Organization [facility] Address [address] [phone] Phone Care Team Providers Care Vegetable Farmer Name Role Phone Terence Barber MD Primary Care Provider [phone] Social History Tobacco Use Types Packs/Day Years [...] Colonoscopy 01/16/2021 10/18/2020 Colorectal Cancer Screening 01/16/2021 Influenza Immunization (#1) 2025 SARS-COV-2 Immunization ( - 2023- season) 2025 Respiratory Syncytial Virus (RSV) Immunization (Adult) [...] MEDICARE C [employer] on file Care Teams Vegetable Farmer Relationship Specialty Start Date End Date Terence Barber MD [address] [address] PCP - General Family Medicine 10/23/20
--- OUTSIDE RECORDS SUMMARY | 2025-07-20 01:58 | XMS_ITS | Clinical Summary ---
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
[2025-07-20 10:41] VITALS: BP 131/81; PULSE 59; RESP 18; TEMP 36.1; O2SAT 98
[2025-07-20] MEDS: LACTATED RINGERS 1,000 ML 150 ML IV CONT (10:52)
--- NOTE | 2025-07-20 11:33 | WPDANESEPPF ---
Anes - Initial Pre Proc Eval Procedure: Operation Date: 07/20/25 11:30 Proposed Procedures p Screening Colonoscopy - Anthony No MD Date/Time: 07/20/25 11:33 Surgeon: Antohny No MD Pre Op Diagnosis: screening Patient Data Age: 70 Gender: M Height: 1.73 m Weight: 73.8 kg Last Vital Signs Temp 97 F L 07/20/25 10:41 Pulse 59 L 07/20/25 10:41 Resp 18 07/20/25 10:41 BP 131/81 07/20/25 10:41 Pulse Ox 98 07/20/25 10:41 O2 Del Method Room Air 07/20/25 10:41 Allergies Allergy/AdvReac Type Severity Reaction Status Date / Time No Known Allergies Allergy Verified 07/20/25 10:38 Home Medications ?Medication ?Instructions ?Recorded ?Confirmed ?Type rosuvastatin 40 mg tablet (Crestor) 40 mg PO DAILY 08/24/20 07/20/25 History carvedilol 25 mg tablet 12.5 mg PO BID 10/18/20 07/20/25 History aspirin 81 mg tablet,delayed 81 mg PO DAILY 11/06/22 07/20/25 History release losartan 25 mg tablet 150 mg PO DAILY 03/09/25 07/20/25 History Patient hx anesthesia problems: none Family hx anesthesia problems: none Results Review: All pre-operative results and documents have been reviewed as part of the pre-operative evaluation. [facility] Past Medical History Medical History Abnormal colonoscopy Family history of colon cancer Depression Seasonal allergies Olecranon bursitis of right elbow BMI 26.0-26.9,adult Coronary arteriosclerosis in [place] artery Screen for colon cancer Elevated glucose Screening for prostate cancer Mixed hyperlipidemia Essential (primary) hypertension Surgical History Surgical History History of coronary angioplasty with insertion of stent H/O colonoscopy Family History Family History Father Hypertension Mother Heart disease Hyperlipidemia Sibling Carcinoma of colon Heart disease Cerebrovascular accident Sibling Heart disease Other Family history of coronary artery disease Social History Social History Smoking status: Never smoker Tobacco type: cigarettes Second hand tobacco smoke exposure: No Alcohol intake: current Drinks per week: 15 Substance use: current Substance use type: marijuana Do You Feel Safe in your Home?: Yes Lack of Transportation: No Lack of Food: Never True Current Housing: I Have Housing Concerned About Future Housing: No Difficulty Paying Gas/Electric Bills: No Difficulty Paying for Meds: No Currently Unemployed: No Education: Trade/Vocational Certificate Difficulty w/ Childcare or Family Care: No Living arrangements: alone Occupation/Education: retired 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 Informed Consent: The patient's anesthetic plan and its attendant risks and benefits were discussed with the patient/family/POA. Questions were solicited and answers provided to the satisfaction of the patient/family/POA.
--- NOTE | 2025-07-20 12:14 | PM.IMHP ---
H&P: HPI History of Present Illness Date/Time: 07/20/25 12:14 Chief Complaint: Screening colonoscopy Narrative: This is the patient's first colonoscopy after 10 years.. There are no GI symptoms and there is no family history of colorectal cancer. Review of Systems Review of Systems: All systems reviewed & are unremarkable except as noted in HPI and below PMFSH Past Medical History Medical History Abnormal colonoscopy Family history of colon cancer Depression Seasonal allergies Olecranon bursitis of right elbow BMI 26.0-26.9,adult Coronary arteriosclerosis in [place] artery Screen for colon cancer Elevated glucose Screening for prostate cancer Mixed hyperlipidemia Essential (primary) hypertension Surgical History Surgical History History of coronary angioplasty with insertion of stent H/O colonoscopy Family History Family History Father Hypertension Mother Heart disease Hyperlipidemia Sibling Carcinoma of colon Heart disease Cerebrovascular accident Sibling Heart disease Other Family history of coronary artery disease Social History Social History Smoking status: Never smoker Tobacco type: cigarettes Second hand tobacco smoke exposure: No Alcohol intake: current Drinks per week: 15 Substance use: current Substance use type: marijuana Do You Feel Safe in your Home?: Yes Lack of Transportation: No Lack of Food: Never True Current Housing: I Have Housing Concerned About Future Housing: No Difficulty Paying Gas/Electric Bills: No Difficulty Paying for Meds: No Currently Unemployed: No Education: Trade/Vocational Certificate Difficulty w/ Childcare or Family Care: No Living arrangements: alone Occupation/Education: 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 Gender identity (if verbalized by the patient): Male Spiritual care concerns: No Meds Home Medications and Allergies Home Medications ?Medication ?Instructions ?Recorded ?Confirmed ?Type rosuvastatin 40 mg tablet (Crestor) 40 mg PO DAILY 08/24/20 07/20/25 History carvedilol 25 mg tablet 12.5 mg PO BID 10/18/20 07/20/25 History aspirin 81 mg tablet,delayed 81 mg PO DAILY 12/22/22 09/04/25 History release losartan 25 mg tablet 150 mg PO DAILY 03/09/25 07/20/25 History Allergies Allergy/AdvReac Type Severity Reaction Status Date / Time No Known Allergies Allergy Verified 07/20/25 10:38 Vital Signs Vital Signs - 24 hr 07/20/25 10:41 Temperature 97 F L Pulse Rate 59 L Respiratory Rate 18 Blood Pressure 131/81 Pulse Oximetry 98 Oxygen Delivery Room Air Exam Const: General: cooperative and healthy appearing Resp: Effort & Inspection: normal respiratory effort and able to speak in complete sentences Auscultation: clear to auscultation bilaterally Cardio: Rate: regular rate Rhythm: regular rhythm GI: Inspection: normal to inspection GI Palp: No No hepatosplenomegaly present Auscultation: normal bowel sounds Rectal Exam: deferred Skin: General skin exam: normal color Psych: Appearance: grossly normal Mental Status: mental status grossly normal Assessment and Plan Assessment and plan (1) Screen for colon cancer: Code(s): Z12.11 - Encounter for screening for malignant neoplasm of colon Status: Acute Assessment and Plan: The patient is deemed a good candidate for the procedure. Consent signed. Will proceed.
[2025-07-20] MEDS: SIMETHICONE ORAL SUSPENSION 20 MG/0.3 ML 30 ML BOTTLE 0.6 ML IRRIGATION (12:25)
--- NOTE | 2025-07-20 12:34 | S_PTH ---
PATIENT: Silverio Mckeon LOC: [facility] #:[id number] AGE/SX: 70/M ROOM: RE07/20/[address]: Anthony No MD : 1955 BED: DIS: 07/20/2025 SPEC #: [id number] RECD: 07/20/25 13:37 STATUS: TODD REQ #: [id number] REYNALDO: 07/20/25 12:[address]: Anthony No DEPT: [facility] Surgical RECD BY: Yaima Terrell MLT, ([facility]) ENTERED: 07/20/25 13:37 SP TYPE: Surgical OTHR DR: Terence Barber MD Tissues: A - Colon Polypectomy Procedures: Hematoxylin and Eosin Stain Gross and Microscopic Level 4
[2025-07-20 12:38] VITALS: BP 97/57; PULSE 57; RESP 24; O2SAT 100
[2025-07-20 12:48] VITALS: BP 106/60; PULSE 56; RESP 18; O2SAT 98
[2025-07-20 12:58] VITALS: BP 117/60; PULSE 55; RESP 17; O2SAT 100
== END 2025-07-20 13:10 | disposition home or self-care (01) ==
PROVIDERS: PCP Family Medicine; Referring Provider Nurse Practitioner Adult Health; Visit Provider Internal Medicine Gastroenterology
PROC: 0DJD8ZZ Inspection of Lower Intestinal Tract, Via Natural or Artificial Opening Endoscopic (ICD-10-PCS; CPT 45378; principal; 2025-07-20 11:30)
DX: Z12.11 Encounter for screening for malignant neoplasm of colon (principal); D12.0 Benign neoplasm of cecum; K64.8 Other hemorrhoids; Z80.0 Family history of malignant neoplasm of digestive organs
CPT/HCPCS: 45385; 88305; J2003; J2704; J7120